=== PATIENT | male | born 1980 | race Caucasian/White ===

== ENCOUNTER 2017-01-29 20:37 | Emergency (ER) | payer OTHER ==
[~2017-01-29] VITALS: Ht 177.8 cm; Wt 95.3 kg
[2017-01-29] MEDS ORDERED: LORAZEPAM1 M1 PO (21:09)
--- NOTE | 2017-01-29 21:26 | ED GENERAL ADULT ---
History of Present Illness General Chief Complaint: General Adult Stated Complaint: "HEART RACING" SHAKY, LIGHTHEADED Source: patient Exam Limitations: no limitations Vital Signs & Intake/Output Vital Signs & Intake/Output Vital Signs Date Time Temp Pulse Resp B/P B/P Pulse O2 O2 Flow FiO2 Mean Ox Delivery Rate 01/29 2245 98.0 89 18 138/62 98 Room Air 01/291 98 Room Air 01/299 99.1 112 24 145/85 100 Room Air ED Intake and Output 01/30 0000 01/29 1200 Intake Total Output Total Balance Patient 210 lb Weight Weight Reported by Patient Measurement Method Allergies Coded Allergies: NO KNOWN ALLERGIES (08/11/13) Reconcile Medications Lorazepam 1 MG TABLET 1 TAB PO DAILY PRN ANXIETY (Reported) Triage Note: PT TO ED C/O "HEART RACING", FEELING SHAKY AND LIGHTHEADED FOR 1 1/2 HR TO 2 HRS. "THESE USUAL ONLY LAST AN HOUR" PMH OF PANIC ATTACKS "THIS WAS WAY MORE INTENSE" DENIES PAIN. STATES DRANK 2 SHOTS "TO TRY TO HELP" Triage Nurses Notes Reviewed? yes Onset: Gradual Duration: hour(s): (2) Timing: recent history Injury Environment: home Severity: moderate Severity Numbers: 8 Modifying Factors: Improves With: other (lorazepam). HPI: Patient is a 36-year-old male with history of panic attacks, generalized anxiety disorder presenting to the emergency Department chief complaint of feeling shaky , anxious has been going on for the past hour and a half. He took 2 doses of his 1 mg lorazepam at home with little relief in symptoms. Reports that symptoms usually go away within an hour. He does admit to being extremely stressed out lately. Recently was fired from work. Denies any chest pain. No palpitations. Reports that he has been breathing heavily and reports lower extremity weakness. Positive nausea but no vomiting. Denies abdominal pain. Denies hemoptysis. (NAOMY SINGLETON,YARITZA) Past History Travel History Traveled to [place] past 21 day No Medical History Any Pertinent Medical History? see below for history Psychiatric: anxiety, PANIC ATTACKS Surgical History Surgical History: non-contributory Psychosocial History What is your primary language Surinamese Tobacco Use: Current Daily Use Daily Tobacco Use Amount/Type: => 5 Cigarettes daily ETOH Use: occasional use Illicit Drug Use: denies illicit drug use Family History Hx Contributory? No (YARITZA HUANG) Review of Systems Review of Systems Constitutional: Reports: weakness. Comments Review of systems: See HPI, All other systems negative. Constitutional, no chills fever or weight loss HEENT: No visual changes no sore throat no congestion Cardiovascular: No chest pain , orthopnea or ankle swelling Skin, no jaundice no rashes Respiratory: No cough sputum or hemoptysis GI: No nausea no vomiting : No dysuria No hematuria Muscle skeletal: no back pain, no neck pain, Neurologic: No numbness no confusion no headache Psych: pos stress, pos anxiety Heme/endocrine: No bruising no bleeding no polyuria or polydipsia Immunology: No splenectomy or history of AIDS (YARITZA HUANG) Physical Exam Physical Exam General Appearance: well developed/nourished, no apparent distress, alert, anxious Comments: Well-developed well-nourished person in no acute distress HEENT: Normal EENT exam, extraocular motion intact, no nystagmus. Pupils equally round and reactive to light and accommodation. Nose is atraumatic.Pharynx normal. No swelling or edema. Neck: Supple, no lymphadenopathy, normal range of motion without pain or tenderness Back: Nontender, Cardiovascular: Regular rate and rhythms no murmurs rubs or gallops, normal JVP Respiratory: Chest nontender. No respiratory distress.breath sounds clear to auscultation bilaterally Abdomen: Soft, nontender nondistended, no appreciable organomegaly. Normal bowel sounds. No ascites, no rebound or guarding. Extremity: No edema, no calf tenderness to palpation, normal and equal pulses. Neuro: Alert oriented x3 Skin: No appreciable rash on exposed skin, skin is warm and dry. Psych: Anxious, memory and judgment is normal. Core Measures ACS in differential dx? Yes CVA/TIA Diagnosis: No Severe Sepsis Present: No Septic Shock Present: No (YARITZA HUANG) Progress Differential Diagnoses I considered the following diagnoses in my evaluation of the patient: Generalized anxiety disorder, ACS, SVT, pe Plan of Care: Orders Procedure Date/time Status TROPONIN LEVEL 01/30 30 Active EKG 01/30 30 Active TROPONIN LEVEL 01/29 2055 Complete COMPREHENSIVE METABOLIC PANEL 01/29 2055 Complete CBC WITHOUT DIFFERENTIAL 01/29 2055 Complete EKG 01/29 2038 Active Laboratory Tests 01/29/172122: Anion Gap 16, Estimated GFR > 60, BUN/Creatinine Ratio 21.1, Glucose 117 H, Calcium 9.9, Total Bilirubin 0.3, AST 29, ALT 59, Alkaline Phosphatase 80, Troponin I < 0.01, Total Protein 7.4, Albumin 4.8, Globulin 2.6, Albumin/ Globulin Ratio 1.8, CBC w Diff NO MAN DIFF REQ, RBC 5.14, MCV 87.4, MCH 29.4, RDW 13.1, MPV 9.4, Gran % 55.8, Lymphocytes % 35.6, Monocytes % 6.6, Eosinophils % 1.3, Basophils % 0.7, Absolute Granulocytes 4.7, Absolute Lymphocytes 3.0, Absolute Monocytes 0.6, Absolute Eosinophils 0.1, Absolute Basophils 0.1, PUBS MCHC 33.6 Diagnostic Imaging: Viewed by Me: Radiology Read. Discussed w/RAD: Radiology Read. CXR Impression: PATIENT: DILCIA SHELTON PRESENT AGE: 36 PATIENT ACCOUNT NO: [id number] : 80 LOCATION: [facility] ORDERING PHYSICIAN: YARITZA SINGLETON SERVICE DATE: 01/29/17 EXAM TYPE: RAD - XRY-CHEST XRAY, PA AND LATERAL EXAMINATION: XR CHEST CLINICAL INFORMATION: Palpitations. Shortness of breath. COMPARISON: None TECHNIQUE: 2 views of the chest were obtained. FINDINGS: The lungs are well expanded. There is no focal consolidation , edema, or effusion. No pneumothorax. The cardiomediastinal silhouette is within normal limits. No acute osseous abnormality. IMPRESSION: No acute pulmonary findings. DICTATED BY: CHERYL RESENDIZ MD DATE/TIME DICTATED:2152 FORK TRUCK DRIVER:JACOB DATE/TIME TRANSCRIBED:01/29/172152 CONFIDENTIAL, DO NOT COPY WITHOUT APPROPRIATE AUTHORIZATION. <Electronically signed in Other Vendor System> SIGNED BY: CHERYL RESENDIZ MD 01/29/172200 Initial ED EKG: sinus tachy, 114 Comments: On arrival patient given 1 mg lorazepam. Within 20 minutes patient reports that he feeling asymptomatic and "normal". Patient does not feel anxious anymore. Patient reports that his symptoms feel identical to previous panic attack except they were longer in nature. Patient requesting to be discharged at this time. First troponin is negative, EKG is sinus tachycardia. Currently on reevaluation patient is no longer tachycardic. Patient resting comfortably drinking water. Does not appear anxious anymore. He was informed of the potential of worsening symptoms, advised patient to stay for repeat troponin and EKG 4 hours from the first. Patient reports that he is feeling much better and would like to be discharged home. The risks and benefits were discussed with the patient. Questions answered. Patient will return for any worsening symptoms or concerns. Patient is alert and oriented, clinically sober and capable of making medical decisions. He'll follow up with his primary care physician tomorrow. He will continue taking medications as previously directed. No risk factors for pulmonary embolus. He does not have any lower extremity edema or calf pain. No hemoptysis. Likely exacerbation of anxiety. (YARITZA HUANG) Departure Departure Time of Disposition: 2227 Disposition: HOME OR SELF CARE Condition: Stable Clinical Impression Primary Impression: Anxiety Referrals: KERRY STOKES APRN Additional Instructions: Follow-up with your primary care physician, call make appointment. Continue anxiety medication as prescribed. Return for worsening symptoms or concerns. Departure Forms: Customer Survey General Discharge Information (YARITZA HUANG) PA/COMPENSATOR WORKER Co-Sign Statement Statement: ED Attending supervision documentation- [] I saw and evaluated the patient. I have also reviewed all the pertinent lab results and diagnostic results. I agree with the findings and the plan of care as documented in the PA's/COMPENSATOR WORKER's documentation. [X] I have reviewed the ED Record and agree with the PA's/COMPENSATOR WORKER's documentation. [] Additions or exceptions (if any) to the PAs/COMPENSATOR WORKER's note and plan are summarized below: [] (COLE VANEGAS DO) Critical Care Note Critical Care Note Critical Care Time: non-applicable (YARITZA HUANG)
[2017-01-29 21:30] LABS: ABSOLUTE BASOPHIL COUNT 0.1 /CUMM (0.0-0.2); ABSOLUTE EOSINOPHIL COUNT 0.1 /CUMM (0.0-0.7); ABSOLUTE GRANULOCYTE CT 4.7 /CUMM (1.4-6.5); ABSOLUTE MONOCYTE COUNT 0.6 /CUMM (0.10-0.60); BASOPHIL % 0.7 % (0.0-2.0); EOSINOPHIL % 1.3 % (0-5); GRANULOCYTE % 55.8 % (42.2-75.2); HEMATOCRIT 44.9 % (42-52); MEAN CORPUSCULAR HGB 29.4 PG (27.0-31.0); MEAN CORPUSCULAR HGB CONC 33.6 G/DL (33.0-37.0); MEAN CORPUSCULAR VOLUME 87.4 FL (80.0-94.0); MEAN PLATELET VOLUME 9.4 FL (7.4-10.4); PLATELET COUNT 200 /CUMM (130-400); RBC DISTRIBUTION WIDTH 13.1 % (11.5-14.5); RED BLOOD CELL CT 5.14 /CUMM (4.70-6.10); WHITE BLOOD CELL COUNT 8.4 /CUMM (4.8-10.8)
--- NOTE | 2017-01-29 22:01 | RADIOLOGY REPORT ---
EXAMINATION: XR CHEST CLINICAL INFORMATION: Palpitations. Shortness of breath. COMPARISON: None TECHNIQUE: 2 views of the chest were obtained. FINDINGS: The lungs are well expanded. There is no focal consolidation, edema, or effusion. No pneumothorax. The cardiomediastinal silhouette is within normal limits. No acute osseous abnormality. IMPRESSION: No acute pulmonary findings.
[2017-01-29 22:45] VITALS: BP 138/62
== END 2017-01-29 22:30 ==
LOC: ERH 20:37
PROVIDERS: Emergency Medicine
DX: F41.9 Anxiety disorder, unspecified (principal)
CPT/HCPCS: 93005; 93010